=== PATIENT | male | born 2000 | race Caucasian/White ===

== ENCOUNTER 2020-12-18 14:24 | Emergency (ER) | payer BC ==
[2020-12-18 14:43] VITALS: BP 154/62
[2020-12-18 14:58] LABS: BASOPHILS % (AUTO) 0.4 %; EOSINOPHILS % (AUTO) 0.3 %; HCT - HEMATOCRIT 46.1 % (42.0-52.0); HGB - HEMOGLOBIN 16.2 g/dL (14.0-18.0); LYMPHOCYTES # (AUTO) 1.7 10^3/uL (1.5-3.5); LYMPHOCYTES % (AUTO) 16.7 %; MEAN CORPUSCULAR HGB CONC 35.1 g/dL (32.0-36.0); MEAN CORPUSCULAR VOLUME 85.4 fL (80.0-94.0); MEAN PLATELET VOLUME 9.8 fL (7.4-11.4); MONOCYTES # (AUTO) 0.4 10^3/uL (0.0-1.0); MONOCYTES % (AUTO) 4.2 %; NEUTROPHILS # (AUTO) 7.8 10^3/uL (1.5-6.6); NEUTROPHILS % (AUTO) 78.1 %; PLT - PLATELET COUNT 255 10^3/uL (130-450); RED CELL DISTRIBUTION WIDTH 11.5 % (12.0-15.0)
[2020-12-18 15:12] LABS: MUDS CUTOFF CONCENTRATIONS CUTOFF CONC BELOW:
[2020-12-18 15:15] LABS: ACETAMINOPHEN < 10 ug/mL (10-30); ALBUMIN 4.8 g/dL (3.2-5.5); ALBUMIN/GLOBULIN RATIO 1.5 (1.0-2.2); ALKALINE PHOSPHATASE 86 IU/L (42-121); ALT ALANINE AMINOTRANSFERASE 66 IU/L (10-60); AST ASPARTATE AMINOTRANSFERASE 53 IU/L (10-42); BILIRUBIN,TOTAL 0.7 mg/dL (0.2-1.0); BUN - BLOOD UREA NITROGEN 10 mg/dL (6-20); CALCIUM 9.8 mg/dL (8.5-10.3); CARBON DIOXIDE - CO2 29 mmol/L (21-32); CHLORIDE 99 mmol/L (101-111); CREATININE 1.1 mg/dL (0.6-1.2); ETOH - ETHANOL < 5.0 mg/dL; GFR - MDRD 85 (>89); GLUCOSE 102 mg/dL (70-100); LIPASE 34 U/L (22-51); POTASSIUM 3.6 mmol/L (3.5-5.0); SALICYLATE < 6.0 mg/dL; SODIUM 137 mmol/L (135-145); TOTAL PROTEIN 7.9 g/dL (6.7-8.2)
[2020-12-18 15:16] LABS: BILIRUBIN,URINE NEGATIVE (NEGATIVE); GLUCOSE, URINE (UA) NEGATIVE (NEGATIVE); KETONES,URINE (UA) NEGATIVE (NEGATIVE); LEUKOCYTE ESTERASE, URINE NEGATIVE (NEGATIVE); NITRITE,URINE NEGATIVE (NEGATIVE); OCCULT BLOOD,URINE NEGATIVE (NEGATIVE); PH,URINE 8.5 PH (5.0-7.5); PROTEIN,URINE NEGATIVE (NEGATIVE); UROBILINOGEN,URINE 0.2 (NORMAL) E.U./dL (NORMAL)
[2020-12-18 15:20] LABS: CLARITY,URINE CLEAR (CLEAR)
[2020-12-18 15:27] LABS: AMPHETAMINE SCREEN,URINE NEGATIVE (NEGATIVE); BARBITURATE SCREEN,UR NEGATIVE (NEGATIVE); BENZODIAZEPINES SCREEN, URINE NEGATIVE (NEGATIVE); COCAINE SCREEN URINE NEGATIVE (NEGATIVE); METHADONE SCREEN, URINE NEGATIVE (NEGATIVE); METHAMPHETAMINES SCREEN, URINE NEGATIVE (NEGATIVE); OPIATE SCREEN, URINE NEGATIVE (NEGATIVE); OXYCODONE SCREEN, URINE NEGATIVE (NEGATIVE); PROPOXYPHENE SCREEN, URINE NEGATIVE (NEGATIVE); THC CANNABINOID SCREEN, URINE POSITIVE (NEGATIVE); TRICYCLIC ANTIDEPRESSANT,URINE NEGATIVE (NEGATIVE)
--- NOTE | 2020-12-18 15:32 | ED Physician Documentation ---
History of Present Illness - Stated complaint Stated Complaint: MHE - Chief complaint Chief Complaint: MHE - Additonal information Additional information: 20-year-old male presents the emergency department requesting voluntary psychiatric hospitalization for depression. Reports that he has a longstanding history of depression and has recently had increasing thoughts of self-harm. He reports to this provider that if allowed to leave the emergency department he would hang himself at home or use a razor to cut his wrists in the shower. He reports multiple family stressors as well as a dysfunctional family environment that he believes contributes to the symptoms. He states that he was at one point prescribed fluoxetine for his symptoms but has not taken for about 4 months as he feels it did not help. No history of previous psychiatric hospitalizations. Review of Systems Constitutional: reports: Reviewed and negative Eyes: reports: Reviewed and negative Nose: reports: Reviewed and negative Throat: reports: Reviewed and negative Cardiac: reports: Reviewed and negative Respiratory: reports: Reviewed and negative GI: reports: Reviewed and negative : reports: Reviewed and negative Skin: reports: Reviewed and negative Musculoskeletal: reports: Reviewed and negative Neurologic: reports: Reviewed and negative Psychiatric: reports: Depressed, Suicidal, Insomnia. denies: Homicidal, Hallucinations, Delusions, Anxiety PD PAST MEDICAL HISTORY - Present Medications Home Medications: Ambulatory Orders Medication Instructions Recorded Confirmed FLUoxetine [PROzac] 10 mg PO DAILY 12/18/20 12/18/20 - Allergies Allergies/Adverse Reactions: Allergies Allergy/AdvReac Type Severity Reaction Status Date / Time Penicillins Allergy Unknown Verified 12/18/20 14:33 PD ED PE EXPANDED - General General: Alert, No acute distress, Well developed/nourished - Cardiac Cardiac: Regular Rate, Radial strong equal, Pedal strong equal. No: Murmur Present - Respiratory Respiratory: Clear to ausultation carie. No: Distress, Labored - Abdomen Abdomen: Normal Bowel sounds. No: Tender to palpation - Extremities Extremities: Normal. No: Deformity, Tenderness - Neuro Neuro: Alert and Oriented X 3, CNII-XII intact, Normal gait, Normal finger nose, Normal speech - GCS Eye Opening: Spontaneous Motor: Obeys Commands Verbal: Oriented Total: 15 - Psych Psych: Suicidal, Agitated. No: Tearful, Withdrawn, Poor eye contact Results - Vitals Vitals: Vital Signs - 24 hr 12/18/20 12/18/20 14:37 14:42 Temperature 37.1 C 37.1 C Heart Rate 98 98 Respiratory 18 18 Rate Blood Pressure 154/62 H 154/62 H O2 Saturation 99 99 Oxygen O2 Source Room air - Labs Labs: Laboratory Tests 12/18/20 12/18/20 12/18/20 14:55 14:55 14:55 WBC 10.0 RBC 5.40 Hgb 16.2 Hct 46.1 MCV 85.4 MCH 30.0 MCHC 35.1 RDW 11.5 L Plt Count 255 MPV 9.8 Neut # (Auto) 7.8 H Lymph # (Auto) 1.7 [place] # (Auto) 0.4 Eos # (Auto) 0.0 Baso # (Auto) 0.0 Absolute Nucleated RBC 0.00 Nucleated RBC % 0.0 Sodium 137 Potassium 3.6 Chloride 99 L Carbon Dioxide 29 Anion Gap 9.0 BUN 10 Creatinine 1.1 Estimated GFR (MDRD) 85 L Glucose 102 H Calcium 9.8 Total Bilirubin 0.7 AST 53 H ALT 66 H Alkaline Phosphatase 86 Total Protein 7.9 Albumin 4.8 Globulin 3.1 Albumin/Globulin Ratio 1.5 Lipase 34 TSH 2.63 Urine Color Urine Clarity Urine pH Ur Specific [place] Urine Protein Urine Glucose (UA) Urine Ketones Urine Occult Blood Urine Nitrite Urine Bilirubin Urine Urobilinogen Ur Leukocyte Esterase Ur Microscopic Review Urine Culture Comments Nasal Adenovirus (PCR) Nasal B. parapertussis DNA (PCR) Nasal Coronavir 229E PCR Nasal Coronavir HKU1 PCR Nasal Coronavir NL63 PCR Nasal Coronavir OC43 PCR Nasal Enterovir/Rhinovir PCR Nasal Influenza B PCR Nasal Influenza A PCR Nasal Parainfluen 1 PCR Nasal Parainfluen 2 PCR Nasal Parainfluen 3 PCR Nasal Parainfluen 4 PCR Nasal RSV (PCR) Nasal B.pertussis DNA PCR Nasal C.pneumoniae (PCR) Sami Human Metapneumo PCR Nasal M.pneumoniae (PCR) Nasal SARS-CoV-2 (PCR) Salicylates < 6.0 Urine Opiates Screen Ur Oxycodone Screen Urine Methadone Screen Ur Propoxyphene Screen Acetaminophen < 10 L Ur Barbiturates Screen Ur Tricyclics Screen Ur Phencyclidine Scrn Ur Amphetamine Screen U Methamphetamines Scrn U Benzodiazepines Scrn Urine Cocaine Screen U Cannabinoids Screen Ethyl Alcohol < 5.0 12/18/20 12/18/20 14:57 15:17 WBC RBC Hgb Hct MCV MCH MCHC RDW Plt Count MPV Neut # (Auto) Lymph # (Auto) [place] # (Auto) Eos # (Auto) Baso # (Auto) Absolute Nucleated RBC Nucleated RBC % Sodium Potassium Chloride Carbon Dioxide Anion Gap BUN Creatinine Estimated GFR (MDRD) Glucose Calcium Total Bilirubin AST ALT Alkaline Phosphatase Total Protein Albumin Globulin Albumin/Globulin Ratio Lipase TSH Urine Color YELLOW Urine Clarity CLEAR Urine pH 8.5 H Ur Specific [place] 1.015 Urine Protein NEGATIVE Urine Glucose (UA) NEGATIVE Urine Ketones NEGATIVE Urine Occult Blood NEGATIVE Urine Nitrite NEGATIVE Urine Bilirubin NEGATIVE Urine Urobilinogen 0.2 (NORMAL) Ur Leukocyte Esterase NEGATIVE Ur Microscopic Review NOT INDICATED Urine Culture Comments NOT INDICATED Nasal Adenovirus (PCR) NOT DETECTED Nasal B. parapertussis DNA (PCR) NOT DETECTED Nasal Coronavir 229E PCR NOT DETECTED Nasal Coronavir HKU1 PCR NOT DETECTED Nasal Coronavir NL63 PCR NOT DETECTED Nasal Coronavir OC43 PCR NOT DETECTED Nasal Enterovir/Rhinovir PCR NOT DETECTED Nasal Influenza B PCR NOT DETECTED Nasal Influenza A PCR NOT DETECTED Nasal Parainfluen 1 PCR NOT DETECTED Nasal Parainfluen 2 PCR NOT DETECTED Nasal Parainfluen 3 PCR NOT DETECTED Nasal Parainfluen 4 PCR NOT DETECTED Nasal RSV (PCR) NOT DETECTED Nasal B.pertussis DNA PCR NOT DETECTED Nasal C.pneumoniae (PCR) NOT DETECTED Sami Human Metapneumo PCR NOT DETECTED Nasal M.pneumoniae (PCR) NOT DETECTED Nasal SARS-CoV-2 (PCR) NOT DETECTED Salicylates Urine Opiates Screen NEGATIVE Ur Oxycodone Screen NEGATIVE Urine Methadone Screen NEGATIVE Ur Propoxyphene Screen NEGATIVE Acetaminophen Ur Barbiturates Screen NEGATIVE Ur Tricyclics Screen NEGATIVE Ur Phencyclidine Scrn NEGATIVE Ur Amphetamine Screen NEGATIVE U Methamphetamines Scrn NEGATIVE U Benzodiazepines Scrn NEGATIVE Urine Cocaine Screen NEGATIVE U Cannabinoids Screen POSITIVE H Ethyl Alcohol PD MEDICAL DECISION MAKING - ED course Complexity details: reviewed results, re-evaluated patient, d/w patient ED course: 20-year-old male who reports a longstanding history of depression as well as multiple family stressors and family dysfunction presents the emergency department requesting voluntary psychiatric hospitalization. Reports this provider that if allowed to leave the emergency department he would hang himself at home or cut his wrists with a razor in the shower. Patient voluntarily accepts admission to [facility]. He has been seen by telepsych who also recommends treatment. She would recommend initiating Prozac 20 mg daily his first dose has been given here in the emergency department. I have confirmed with patient the plan for him to go to [place]. BLS transport is being arranged. Appropriate [facility] paperwork is being completed on a voluntary psychiatric transfer basis. Departure - Departure Disposition: 65 Psych Hosp/Unit DC/Xfer Clinical Impression: Suicidal ideation Depression Qualifiers: Depression Type: unspecified Qualified Code(s): F32.9 - Major depressive disorder, single episode, unspecified Condition: Stable Record reviewed to determine appropriate education?: Yes Instructions: ED Depression Comments: Luis you have been accepted at [facility]. You will be transferred there for further care and treatment of your depression and thoughts of self-harm.
[2020-12-18 16:12] LABS: B. PARAPERTUSSIS- RESP PCR PAN NOT DETECTED; B. PERTUSSIS- RESP PCR PANEL NOT DETECTED; C. PNEUMONIAE- RESP PCR PANEL NOT DETECTED; CORONAVIRUS 229E-RESP PCR NOT DETECTED; CORONAVIRUS HKU1-RESP PCR NOT DETECTED; CORONAVIRUS NL63-RESP PCR NOT DETECTED; CORONAVIRUS OC43-RESP PCR NOT DETECTED; HUMAN METAPNEUMOVIRUS NOT DETECTED; INFLUENZA A- RESP PCR PANEL NOT DETECTED; INFLUENZA B - RESP PCR PANEL NOT DETECTED; M. PNEUMONIAE- RESP PCR PANEL NOT DETECTED; PARAINFLUENZA VIRUS 1 NOT DETECTED; PARAINFLUENZA VIRUS 2 NOT DETECTED; PARAINFLUENZA VIRUS 3 NOT DETECTED; PARAINFLUENZA VIRUS 4 NOT DETECTED; RHINOVIRUS/ENTEROVIRUS NOT DETECTED; RSV- RESP PCR PANEL NOT DETECTED; SARS-CoV-2 -RESP PCR PANEL NOT DETECTED
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
== END 2020-12-18 20:01 ==
LOC: ED 14:24
DX: F32.9 Major depressive disorder, single episode, unspecified (principal); Z63.8 Other specified problems related to primary support group; Z20.822 Contact with and (suspected) exposure to COVID-19
CPT/HCPCS: 0202U; 36415; 80053; 80306; 80307; 80320; 80329; 81003; 83690; 84443; 85025; 99283; 99285; G0425; Q3014; 81001; 87086

== ENCOUNTER 2021-02-18 19:05 | Outpatient (CLI) | payer BC | END 2021-02-18 19:06 | disposition critical access hospital (66) | LOC: EMS 19:05 | DX: R45.851 Suicidal ideations (principal); T43.592A Poisoning by other antipsychotics and neuroleptics, intentional self-harm, initial encounter | CPT/HCPCS: A0425; A0429 ==

== ENCOUNTER 2021-02-18 19:27 | Emergency (ER) | payer BC ==
[2021-02-18 19:55] LABS: MUDS CUTOFF CONCENTRATIONS CUTOFF CONC BELOW:
[2021-02-18 19:57] LABS: BILIRUBIN,URINE NEGATIVE (NEGATIVE); CLARITY,URINE CLEAR (CLEAR); GLUCOSE, URINE (UA) NEGATIVE (NEGATIVE); KETONES,URINE (UA) NEGATIVE (NEGATIVE); LEUKOCYTE ESTERASE, URINE NEGATIVE (NEGATIVE); NITRITE,URINE NEGATIVE (NEGATIVE); OCCULT BLOOD,URINE NEGATIVE (NEGATIVE); PROTEIN,URINE NEGATIVE (NEGATIVE); UROBILINOGEN,URINE 0.2 (NORMAL) E.U./dL (NORMAL)
[2021-02-18 20:08] LABS: BASOPHILS % (AUTO) 0.2 %; EOSINOPHILS % (AUTO) 0.4 %; HCT - HEMATOCRIT 41.6 % (42.0-52.0); HGB - HEMOGLOBIN 14.9 g/dL (14.0-18.0); LYMPHOCYTES # (AUTO) 1.8 10^3/uL (1.5-3.5); MEAN CORPUSCULAR HEMOGLOBIN 29.8 pg (27.0-31.0); MEAN CORPUSCULAR HGB CONC 35.8 g/dL (32.0-36.0); MEAN CORPUSCULAR VOLUME 83.2 fL (80.0-94.0); MEAN PLATELET VOLUME 10.3 fL (7.4-11.4); MONOCYTES # (AUTO) 0.4 10^3/uL (0.0-1.0); MONOCYTES % (AUTO) 4.8 %; NEUTROPHILS # (AUTO) 6.7 10^3/uL (1.5-6.6); NEUTROPHILS % (AUTO) 74.4 %; PLT - PLATELET COUNT 250 10^3/uL (130-450); RED CELL DISTRIBUTION WIDTH 11.6 % (12.0-15.0); WHITE BLOOD COUNT 9.1 x10^3/uL (4.8-10.8)
[2021-02-18 20:14] LABS: AMPHETAMINE SCREEN,URINE NEGATIVE (NEGATIVE); BARBITURATE SCREEN,UR NEGATIVE (NEGATIVE); BENZODIAZEPINES SCREEN, URINE NEGATIVE (NEGATIVE); COCAINE SCREEN URINE NEGATIVE (NEGATIVE); METHADONE SCREEN, URINE NEGATIVE (NEGATIVE); METHAMPHETAMINES SCREEN, URINE NEGATIVE (NEGATIVE); OPIATE SCREEN, URINE NEGATIVE (NEGATIVE); OXYCODONE SCREEN, URINE NEGATIVE (NEGATIVE); PROPOXYPHENE SCREEN, URINE NEGATIVE (NEGATIVE); THC CANNABINOID SCREEN, URINE NEGATIVE (NEGATIVE); TRICYCLIC ANTIDEPRESSANT,URINE NEGATIVE (NEGATIVE)
[2021-02-18 20:21] LABS: ACETAMINOPHEN < 10 ug/mL (10-30); ALBUMIN 4.7 g/dL (3.2-5.5); ALBUMIN/GLOBULIN RATIO 1.7 (1.0-2.2); ALKALINE PHOSPHATASE 79 IU/L (42-121); ALT ALANINE AMINOTRANSFERASE 18 IU/L (10-60); AST ASPARTATE AMINOTRANSFERASE 18 IU/L (10-42); BILIRUBIN,TOTAL 0.7 mg/dL (0.2-1.0); BUN - BLOOD UREA NITROGEN 17 mg/dL (6-20); CALCIUM 9.5 mg/dL (8.5-10.3); CARBON DIOXIDE - CO2 30 mmol/L (21-32); CHLORIDE 99 mmol/L (101-111); CREATININE 1.1 mg/dL (0.6-1.2); ETOH - ETHANOL < 5.0 mg/dL; GFR - MDRD 85 (>89); GLUCOSE 98 mg/dL (70-100); LIPASE 49 U/L (22-51); POTASSIUM 3.4 mmol/L (3.5-5.0); SALICYLATE < 6.0 mg/dL; SODIUM 137 mmol/L (135-145); TOTAL PROTEIN 7.4 g/dL (6.7-8.2)
[2021-02-18 20:26] LABS: VALPROIC ACID (DEPAKOTE) < 10.0 ug/mL
[2021-02-18 20:54] LABS: CORONAVIRUS 229E-RESP PCR NOT DETECTED; CORONAVIRUS HKU1-RESP PCR NOT DETECTED; CORONAVIRUS NL63-RESP PCR NOT DETECTED; CORONAVIRUS OC43-RESP PCR NOT DETECTED; HUMAN METAPNEUMOVIRUS NOT DETECTED; INFLUENZA A- RESP PCR PANEL NOT DETECTED; INFLUENZA B - RESP PCR PANEL NOT DETECTED; PARAINFLUENZA VIRUS 1 NOT DETECTED; PARAINFLUENZA VIRUS 2 NOT DETECTED; PARAINFLUENZA VIRUS 3 NOT DETECTED; PARAINFLUENZA VIRUS 4 NOT DETECTED; RHINOVIRUS/ENTEROVIRUS NOT DETECTED; RSV- RESP PCR PANEL NOT DETECTED; SARS-CoV-2 -RESP PCR PANEL NOT DETECTED
[2021-02-18 20:55] LABS: B. PARAPERTUSSIS- RESP PCR PAN NOT DETECTED; B. PERTUSSIS- RESP PCR PANEL NOT DETECTED; C. PNEUMONIAE- RESP PCR PANEL NOT DETECTED; M. PNEUMONIAE- RESP PCR PANEL NOT DETECTED
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
[2021-02-19 07:38] VITALS: BP 105/60
--- NOTE | 2021-02-19 07:40 | TELEPSYCH PHYS NOTE ---
Telepsych Note - CHIEF COMPLAINT/HX OF PRESENT ILLNESS Chief Complaint and History of Present Illness: Name: Luis Mcdaniel :2000 Date: 02/19/21 Time:1017 Location of patient: [facility] Location of doctor:[place] Length of consult: 20 min This evaluation was conducted via video telepsychiatry with the assistance of onsite staff Reason for consult: suicidal ideations Requested by: Dr. Ahn History of Present Illness: 20 year old male with a history of depression and ADHD and cannabis abuse presented to the ED with suicidal ideations to overdose. The patient was agreeable to being evaluated by Tele. He reports that him and his girlfriend have been arguing or little things all week. they had a big argument last night and he reports he was done. He reports he does not want to live any more. he reports that he took some pills ( snorted them per ED record ) . He reports I didnt take enough the plan to was go home and take more, but I came here instead. he reports that he has been feeling suicidal for a month or more . he reports that his sleep has been ok and he gets 5 hours of sleep on average. he reports that his appetite and energy are ok, but decreased motivation. he reports he has been stressed out. he reports he is going to be a dad in September. he reports that he has not been able to find a Job due to COVID. he reports that he has been seeing shadow figures when he is stressed out. and over the last week he has heard people talking when it should be quiet. he denies homicidal ideations intents or plans. he reports he still feels suicidal and feels like overdosing Collateral contacted N Name Phone #? , Relationship to the patient . If N, (No Answer/None available/Patient meets criteria for admission/Other free text reason) meets criteria for admission Sleep issues: Y - Quantity: 5 hours Quality: he reports good Suicide Assessment: PSS-3: 1) Over the past 2 weeks have you felt down, depressed or hopeless? Y/N yes 2) Over the past 2 weeks have you had thoughts of killing yourself? Y/N yes 3) Have you ever in your life attempted to kill yourself? Y/N yes If yes, then when? Within the past 6 months Y/N yes PSS-3 Secondary Screen If #2 is yes or #3 is yes within the past 6 months, then complete secondary screen: 1) Positive on PSS-3 questions 2 & 3 active SI with a past attempt? Y/N yes 2) Have you been thinking about how you might kill yourself? Y/N yes 3) Have you had some intention of acting on your thoughts? Y/N yes 4) Lifetime psychiatric hospitalization? Y/N yes 5) Has drinking or substance abuse ever been a problem for you? Y/N yes 6) Current irritability, agitation, or aggression? Y/N yes PSS-3 Secondary Screen Scoring: (Mild/Moderate/Severe) Mild (0-2) No current attempt and no plan/intent Moderate (3-4) No current attempt, Plan OR intent but not both Severe (5-6) Current Attempt with Plan AND intent - SI/HI/SELF HARM SI/HI/SELF HARM (CURRENT OR HISTORY OF):: SI - VIOLENCE/LEGAL/COLLATERAL Violence - Legal - Collateral: Access to firearms: Y/N - if Y then describe: denies HI/Violence/Property destruction: Y/N - if Y then describe: denies Legal: Y/N - if Y then describe: driving without a license and insurance - PSYCHIATRIC HX/TREATMENT HX Psychiatric: Depression, Anxiety, Bipolar disorder, ADD/ADHD Psychiatric/Treatment Hx Other: : first seen a psychiatrist at age 20 for ADHD and depression. he reports that 1 month ago he attempted suicide overdosing on Percocet. he was admitted to [facility] at that time. he reports that this time he overdosed on Seroquel and Strattera. Past diagnoses: ADHD, anxiety , depression and bipolar Hospitalizations: Y/N if Y describe: yes once Current Treatment: Medication management N Therapy N - DRUG/ALCOHOL HX Substance Use and Type: Marijuana Substance use/abuse/alcohol text: smokes 3-4 cigarettes a day. smokes 3 grams of marijuana daily since age 15. does not drink - MEDICAL HX Does the pt have a hx of MRSA?: No Neurological History: None Eyes, Ears, Nose, Throat: None Cardiovascular: None Respiratory: Asthma Skin: None Endocrine/Autoimmune: None - HOME MEDICATIONS Home Meds (as last confirmed): Patient History Medication Instructions Recorded Confirmed FLUoxetine [PROzac] 10 mg PO DAILY 12/18/20 12/18/20 Guanfacine HCl [Intuniv] 1 mg PO BID 02/18/21 02/18/21 Mirtazapine [Remeron] 15 mg PO DAILY 02/18/21 02/18/21 Quetiapine Fumarate [Seroquel Xr] 300 mg PO DAILY 02/18/21 02/18/21 - ALLERGIES Allergies (as last confirmed): Allergies Allergy/AdvReac Type Severity Reaction Status Date / Time aspirin Allergy Nausea Verified 02/18/21 19:33 Penicillins Allergy Unknown Verified 12/18/20 14:33 - FAMILY PSYCH/SUICIDE/SOCIAL HX-MENTAL Family - Suicide - Social Hx and Mental Status Exam: [employer] ([employer])-based Safety Assessment: Risk Factors Stressors: soon to be father, jobless Attempts/Self-injury: Y/N if Y then describe overdose Impulsivity: Y/N if Y then describe yes Drug/Alcohol History: Y/N - if Y then describe: smokes 3-4 cigarettes a day. smokes 3 grams of marijuana daily since age 15. does not drink Trauma history: Y/N - if Y then describe: denies Access to firearms: Y/N - if Y then describe: denies HI/Violence/Property destruction: Y/N - if Y then describe: denies Legal: Y/N - if Y then describe: driving without a license and insurance Family Psych History: Y/N - if Y then describe: denies Family History of suicide: Y/N Protective Factors Internal: unknown External: Social supports/ Therapeutic relationships: Y/N - if Y then describe family Relationship history: single Living situation: Homeless Y/N if no describe: lives with his parents Employment: Y/N - if Y then describe: unemployed Education: 12th grade Responsibility to family/children/work: Y/N - if Y then describe: has a baby on the way Future orientation: Y/N - if Y then describe: no Mental Status Exam: Appearance and attire: he is casually groomed and in a hospital gown Attitude and behavior: calm with poor eye contact looks around the room a ppears bored Psychomotor agitation/abnormal movements: normal Speech: normal rate and tone Affect and mood: restricted, mood depressed Association and thought processes: organized Thought content: negativistic and reports hopelessness Perception: reports occasional AH and seeing shadows Sensorium, memory, and orientation: alert and oriented times 3 Intellectual functioning: average Insight and judgment: poor - TREATMENT/PHARMACOLOGICAL RECOMMENDATION Treatment - Pharmacological - Therapy Recommendations: [email or web address] CPT code: 13166 Treatment Plan: Level of Care: inpatient Psychiatric Clearance: N Observation level 1:1 needed?: close observation Pharmacological: continue home medications Patient psychotic? Y/N if Y was standing antipsychotic medication started Y/N no Therapy: CBT Follow up needed while in hospital?: Y/N/NA if Y then frequency q 24-48 hours Discussed plan with onsite bakery team leader, who? (Y/N): Who Dr. Ahn Other: Gabriela Simmons MD - TIME SPENT & PROVIDER LOCATION Telepsych consultation conducted via videoconferencing: Yes ([address] Simmons ) List names and roles of persons who participated in consult: Dr. Ahn Telepsych Provider Location: [place] Time Telepsych consult began: 07:50 Time Telepsych consult completed: 08:15
--- NOTE | 2021-02-19 12:42 | ED Physician Documentation ---
ED Addendum - Addendum Addendum: 02/19/21 12:41Patient was signed out to me at change of shift pending social work evaluation after presenting to the emergency department complaint of suicidal ideation. The patient had had a telepsych evaluation overnight, stating he would benefit from inpatient treatment. Social work did see the patient and patient was accepted at [facility] behavioral health unit. Patient was without further complaints in the emergency department and remained stable throughout the remainder of his stay. Final impression: 1. Major depression 2. Suicidal ideation Disposition: Transfer to [facility] in serious condition.
== END 2021-02-19 13:15 ==
LOC: EDUNIT# → ED 19:27
DX: F32.9 Major depressive disorder, single episode, unspecified (principal); R45.851 Suicidal ideations; F90.9 Attention-deficit hyperactivity disorder, unspecified type; F17.210 Nicotine dependence, cigarettes, uncomplicated; Z20.822 Contact with and (suspected) exposure to COVID-19
CPT/HCPCS: 0202U; 36415; 80053; 80164; 80306; 80307; 80320; 80329; 81003; 83690; 84443; 85025; 93005; 99281; 99285; G0425; Q3014; 81001; 87086

== ENCOUNTER 2021-09-23 12:58 | Outpatient (CLI) | payer MEDICAID | END 2021-09-23 12:59 | disposition EMS.NT | LOC: EMS 12:58 | DX: S61.217A Laceration without foreign body of left little finger without damage to nail, initial encounter (principal); W25.XXXA Contact with sharp glass, initial encounter; Y93.E9 Activity, other interior property and clothing maintenance; Y92.009 Unspecified place in unspecified non-institutional (private) residence as the place of occurrence of the external cause ==

== ENCOUNTER 2021-09-23 14:03 | Outpatient (CLI) | payer MEDICAID | END 2021-09-23 14:04 | disposition critical access hospital (66) | LOC: EMS 14:03 | DX: S61.217A Laceration without foreign body of left little finger without damage to nail, initial encounter (principal); W25.XXXA Contact with sharp glass, initial encounter; Y93.E9 Activity, other interior property and clothing maintenance; Y92.009 Unspecified place in unspecified non-institutional (private) residence as the place of occurrence of the external cause | CPT/HCPCS: A0425; A0429 ==

== ENCOUNTER 2021-09-23 14:28 | Emergency (ER) | payer BC, MEDICAID ==
[2021-09-23 14:39] VITALS: BP 106/72
--- NOTE | 2021-09-23 14:44 | ED Physician Documentation ---
PD HPI UPPER EXT INJURY - Stated complaint Stated Complaint: FINGER LAC - Chief complaint Chief Complaint: Laceration - History obtained from History obtained from: Patient, EMS - History of Present Illness Location: Left (This is a young left-handed man who is up-to-date on tetanus who cut his left pinky on broken glass around noon today. There is persistent bleeding.) Review of Systems Constitutional: reports: Reviewed and negative Eyes: reports: Reviewed and negative Nose: reports: Reviewed and negative Throat: reports: Reviewed and negative PD PAST MEDICAL HISTORY - Past Medical History Cardiovascular: None Respiratory: Asthma Neuro: None Endocrine/Autoimmune: None HEENT: None Psych: Depression, Anxiety, Bipolar disorder, ADD/ADHD Derm: None - Past Surgical History Past Surgical History: No - Present Medications Home Medications: Ambulatory Orders Medication Instructions Recorded Confirmed FLUoxetine [PROzac] 10 mg PO DAILY 12/18/20 12/18/20 Guanfacine HCl [Intuniv] 1 mg PO BID 02/18/21 02/18/21 Mirtazapine [Remeron] 15 mg PO DAILY 02/18/21 02/18/21 Quetiapine Fumarate [Seroquel Xr] 300 mg PO DAILY 02/18/21 02/18/21 - Allergies Allergies/Adverse Reactions: Allergies Allergy/AdvReac Type Severity Reaction Status Date / Time aspirin Allergy Nausea Verified 09/23/21 14:38 Penicillins Allergy Unknown Verified 09/23/21 14:38 - Social History Does the pt smoke?: Yes Smoking Status: Current every day smoker Does the pt drink ETOH?: Yes Does the pt have substance abuse?: No - Immunizations Immunizations are current?: Yes PD ED PE NORMAL - Vitals Vital signs reviewed: Yes - General General: Alert and oriented X 3, No acute distress - Extremities Extremities: Other (There is skin avulsion/gouge on the pulp of the left pinky without distal neurovascular compromise with mild active oozing.) - Neuro Neuro: Alert and oriented X 3, Normal speech - Psych Psych: Normal mood, Normal affect Results - Vitals Vitals: Vital Signs - 24 hr 09/23/21 14:38 Temperature 36.7 C Heart Rate 80 Respiratory 16 Rate Blood Pressure 106/72 O2 Saturation 99 Oxygen O2 Source Room air Procedures - General procedure General procedure: The wound was irrigated and dressed with Gelfoam and tube gauze for hemostasis and he was counseled on wound care. Departure - Departure Disposition: 01 Home, Self Care Clinical Impression: Fingertip amputation Qualifiers: Encounter type: initial encounter Qualified Code(s): S68.119A - Complete traumatic metacarpophalangeal amputation of unspecified finger, initial encounter Condition: Good Record reviewed to determine appropriate education?: Yes Instructions: ED Laceration Amputation Finger Tip Open Tx Comments: Keep the current dressing on until Thursday morning. At that time you can briefly wash it with soap and water and keep it covered with antibiotic ointment such as bacitracin which is available [id number] and Band-Aid. You can repeat that process daily, until the skin fills then which will take a week or 2. Return if worse. Discharge Date/Time: 09/23/21 14:55
== END 2021-09-23 14:55 | disposition home or self-care (01) ==
LOC: EDUNIT# → ED 14:28
DX: S68.119A Complete traumatic metacarpophalangeal amputation of unspecified finger, initial encounter (principal); W25.XXXA Contact with sharp glass, initial encounter; F17.200 Nicotine dependence, unspecified, uncomplicated
CPT/HCPCS: 99282; 99283